=== PATIENT | female | born 1955 | race Caucasian/White ===

== ENCOUNTER 2021-08-02 07:27 | Outpatient (CLI) | payer BC ==
[2021-08-02 17:24] LABS: SARS-CoV-2 PCR by NAA Not Detected (NotDetected)
== END 2021-08-02 07:28 | disposition home or self-care (01) ==
LOC: LABBT 07:27
PROVIDERS: ATTEND Ophthalmology Retina Specialist
DX: Z01.812 Encounter for preprocedural laboratory examination (principal); H54.7 Unspecified visual loss; Z20.822 Contact with and (suspected) exposure to COVID-19
CPT/HCPCS: U0003; U0005

== ENCOUNTER 2021-08-07 06:07 | Day surgery (SDC) | payer MEDICARE ==
[2021-08-06 11:04] VITALS: BMI 24.7
[2021-08-07] MEDS ORDERED: Cyclopentolate 1% Opth Drop 2 ML BOT ONE (06:15)
[2021-08-07] MEDS ORDERED: Phenylephrine 2.5% Ophth Soln 5 ML BOT ONE (06:15)
[2021-08-07] MEDS ORDERED: Fentanyl 100 MCG/2 ML VIAL ONE (06:22)
[2021-08-07] MEDS ORDERED: Midazolam HCl 2 mg/2 ml Vial ONE (06:22)
[2021-08-07] MEDS ORDERED: EPINEPHrine 0.3 MG in Ophthalmic Irrigation Solution 500 ML IRR SCH (06:30)
[2021-08-07] MEDS ORDERED: Maxitrol 0.1% Opth Oint 3.5 GM TUBE ONE (07:53)
[2021-08-07] MEDS ORDERED: PROPOFOL 200 MG/20 ML VIAL ONE (07:53)
[2021-08-07] MEDS ORDERED: Triamcinolone 40 MG/ML VIAL ONE (07:53)
[2021-08-07] MEDS ORDERED: Indocyanine Green 25 MG/10 ML VIAL ONE (07:53)
[2021-08-07] MEDS ORDERED: Lidocaine 1% PF 5 ML VIAL ONE (07:53)
[2021-08-07] MEDS ORDERED: Lidocaine 4% PF 5 ML AMP ONE (07:53)
[2021-08-07] MEDS ORDERED: Bupivacaine PF 0.75% SDV 10 ML ONE (07:53)
[2021-08-07] MEDS ORDERED: CEFAZOLIN 1 GM VIAL ONE (07:53)
== END 2021-08-07 09:49 | disposition home or self-care (01) ==
LOC: SDC 06:07
PROVIDERS: ATTEND Ophthalmology Retina Specialist
PROC: 08T43ZZ Resection of Right Vitreous, Percutaneous Approach (ICD-10-PCS; principal; 2021-08-07)
PROC: 08NE3ZZ Release Right Retina, Percutaneous Approach (ICD-10-PCS; 2021-08-07)
DX: H35.341 Macular cyst, hole, or pseudohole, right eye (principal); E78.5 Hyperlipidemia, unspecified; E03.9 Hypothyroidism, unspecified; Z87.891 Personal history of nicotine dependence; Z79.899 Other long term (current) drug therapy; Z88.6 Allergy status to analgesic agent
CPT/HCPCS: 67025; J0171; J0690; J2250; J2704; J3010; J3301; J3490